=== PATIENT | male | born 1970 | race Caucasian/White ===

== ENCOUNTER 2018-06-27 22:21 | Emergency (ER) | payer OTHER ==
[~2018-06-27] VITALS: Ht 180.3 cm; Wt 101.2 kg
[2018-06-28 01:13] VITALS: BP 126/81
== END 2018-06-28 01:13 | disposition home or self-care (01) ==
LOC: ED 22:21
DX: M54.5 Low back pain (principal); R06.02 Shortness of breath; R20.2 Paresthesia of skin; F41.9 Anxiety disorder, unspecified; I25.2 Old myocardial infarction
CPT/HCPCS: J1200